=== PATIENT | male | born 1960 | race Two or more races ===

== ENCOUNTER 2018-07-13 15:20 | Inpatient (IN) | payer MEDICARE, OTHER ==
[~2018-07-13] VITALS: Ht 175.3 cm; Wt 73.9 kg
--- NOTE | 2018-07-13 15:25 | NUR ---
ED Nurse Note:' patient came in from [place], c/o cellulitis and toes infection, patient peeled off the toe nail, patient appears to have bilateral lower leg cellulitis. patient is alert and oriented, but confused, needs constant reorientation.
[2018-07-13 15:30] VITALS: BP 132/78
[2018-07-13] MEDS ORDERED: LORazepam 1mg tab ORAL ONE (16:00)
[2018-07-13 16:18] LABS: APPEARANCE,URINE CLEAR; BILIRUBIN, URINE NEGATIVE (NEGATIVE); COLOR,URINE PALE YELLOW; GLUCOSE, URINE (UA) NEGATIVE (NEGATIVE); KETONES,URINE NEGATIVE (NEGATIVE); LEUKOCYTE ESTERASE ,URINE NEGATIVE (NEGATIVE); NITRITE,URINE NEGATIVE (NEGATIVE); PH,URINE 7 (4.5-8.0); PROTEIN,URINE NEGATIVE (NEGATIVE); UROBILINOGEN,URINE NORMAL MG/DL (0.0-1.0)
--- NOTE | 2018-07-13 16:22 | Emergency Room Report ---
History of Present Illness General Chief Complaint: General Complaint Source: Medical Record Present Illness HPI 58-year-old male presents to the emergency department sent by assisted living for erythema, warmth to the bilateral feet as well as toenail avulsion that was self-inflicted last night. Patient has a history of it's affective disorder with some paranoia and OCD he also morfin COPD, upper lipidemia and GERD. Reports pain he is unable to provide a number rating. History and review of systems is limited due to patient being a poor historian he came accompanied with documentation of alternate democrat having conservatorship over him. Allergies: Coded Allergies: No Known Allergies (Unverified , 07/13/18) Patient History Past Medical History: see triage record, COPD, psych hx Past Surgical History: none Pertinent Family History: none Reviewed Nursing Documentation: PMH: Agreed; PSxH: Agreed Nursing Documentation-PMH Past Medical History: No History, Except For Hx COPD: Yes History Of Psychiatric Problem: Yes - OCD, Schizophrenia Review of Systems All Other Systems: negative except mentioned in HPI Physical Exam Vital Signs Date Time Temp Pulse Resp B/P (MAP) Pulse Ox O2 Delivery O2 Flow Rate FiO2 07/13/18 15:19 97.2 78 18 132/78 95 Room Air Sp02 EP Interpretation: reviewed, normal General Appearance: no apparent distress, alert, GCS 15, non-toxic Head: normocephalic, atraumatic Eyes: bilateral eye normal inspection, bilateral eye PERRL ENT: hearing grossly normal, normal voice Neck: full range of motion Respiratory: chest non-tender, lungs clear, normal breath sounds, speaking full sentences Cardiovascular #1: regular rate, rhythm, normal capillary refill Cardiovascular #2: 2+ dorsalis pedis (R), 2+ dorsalis pedis (L) Gastrointestinal: non tender, soft Musculoskeletal: back normal, gait/station normal, normal range of motion, swelling - bilat. feet., tender - TTP bilateral feet left>right, erythema, swelling and warmth. up to the ankles, NVI Neurologic: alert, oriented x3, responsive, motor strength/tone normal, sensory intact, speech normal, grossly normal Psychiatric: judgement/insight normal Skin: no rash, warm/dry, well hydrated, other - Erythema, swelling and warmth of the bilateral feet left>right, Medical Decision Making PA Attestation Dr. Addison is my supervising Physician whom patient management has been discussed with. Diagnostic Impression: Primary Impression: Cellulitis of both feet Additional Impression: Nail avulsion of toe Qualified Codes: S91.209A - Unspecified open wound of unspecified toe(s) with damage to nail, initial encounter ER Course 58-year-old male presents to the emergency department sent by assisted living for erythema, warmth to the bilateral feet as well as toenail avulsion that was self-inflicted last night. Patient has a history of it's affective disorder with some paranoia and OCD he also morfin COPD, upper lipidemia and GERD. Reports pain he is unable to provide a number rating. History and review of systems is limited due to patient being a poor historian he came accompanied with documentation of alternate democrat having conservatorship over him. Ddx considered but are not limited to cellulitis, DVT, toe nail avulsion, fracture, d/L, gout Vital signs: are WNL, pt. is afebrile H&PE are most consistent with Cellulitis ORDERS: - septic workup -CBC, CMP, lactic acid, blood cultures which are pending, troponin and CK. -UA:unremarkable ED INTERVENTIONS: -Vancomycin IV 1g. DISPOSITION: at this time pt. will be admitted to Dr. Mary for cellulitis of the bilateral feet. Dr. Mary agreed to admit the pt. and to continue pt. care management. Labs Test 07/13/18 15:49 07/13/18 16:15 Urine Color Pale yellow Urine Appearance Clear Urine pH 7 (4.5-8.0) Urine Specific [place] 1.010 (1.005-1.035) Urine Protein Negative (NEGATIVE) Urine Glucose (UA) Negative (NEGATIVE) Urine Ketones Negative (NEGATIVE) Urine Blood 1+ (NEGATIVE) Urine Nitrite Negative (NEGATIVE) Urine Bilirubin Negative (NEGATIVE) Urine Urobilinogen Normal MG/DL (0.0-1.0) Urine Leukocyte Esterase Negative (NEGATIVE) Urine RBC 2-4 /HPF (0 - 0) Urine WBC 0 /HPF (0 - 0) Urine Squamous Epithelial Cells None /LPF (NONE/OCC) Urine Bacteria None /HPF (NONE) White Blood Count 7.5 K/UL (4.8-10.8) Red Blood Count 4.86 M/UL (4.70-6.10) Hemoglobin 14.8 G/DL (14.2-18.0) Hematocrit 43.5 % (42.0-52.0) Mean Corpuscular Volume 90 FL (80-99) Mean Corpuscular Hemoglobin 30.5 PG (27.0-31.0) Mean Corpuscular Hemoglobin Concent 34.1 G/DL (32.0-36.0) Red Cell Distribution Width 12.3 % (11.6-14.8) Platelet Count 152 K/UL (150-450) Mean Platelet Volume 5.9 FL (6.5-10.1) Neutrophils (%) (Auto) 71.3 % (45.0-75.0) Lymphocytes (%) (Auto) 16.9 % (20.0-45.0) Monocytes (%) (Auto) 10.5 % (1.0-10.0) Eosinophils (%) (Auto) 0.0 % (0.0-3.0) Basophils (%) (Auto) 1.2 % (0.0-2.0) Sodium Level 134 MMOL/L (136-145) Potassium Level 4.4 MMOL/L (3.5-5.1) Chloride Level 99 MMOL/L (98-107) Carbon Dioxide Level 29 MMOL/L (21-32) Anion Gap 7 mmol/L (5-15) Blood Urea Nitrogen 15 mg/dL (7-18) Creatinine 0.7 MG/DL (0.55-1.30) Estimat Glomerular Filtration Rate > 60 mL/min (>60) Glucose Level 96 MG/DL (74-106) Lactic Acid Level 1.10 mmol/L (0.4-2.0) Calcium Level 8.8 MG/DL (8.5-10.1) Total Bilirubin 0.4 MG/DL (0.2-1.0) Aspartate Amino Transf (AST/SGOT) 35 U/L (15-37) Alanine Aminotransferase (ALT/SGPT) 32 U/L (12-78) Alkaline Phosphatase 71 U/L (46-116) Total Creatine Kinase 316 U/L (26-308) Troponin I 0.002 ng/mL (0.000-0.056) Total Protein 7.0 G/DL (6.4-8.2) Albumin 3.7 G/DL (3.4-5.0) Globulin 3.3 g/dL Albumin/Globulin Ratio 1.1 (1.0-2.7) Last Vital Signs Date Time Temp Pulse Resp B/P (MAP) Pulse Ox O2 Delivery O2 Flow Rate FiO2 07/13/18 15:30 78 18 Room Air 07/13/18 15:30 97.1 132/78 95 Disposition: ADMITTED INPATIENT Condition: Serious Amy Parrish Jul 13, 2018 16:22
[2018-07-13 16:28] LABS: BASOPHILS % (AUTO) 1.2 % (0.0-2.0); HEMATOCRIT 43.5 % (42.0-52.0); HEMOGLOBIN 14.8 G/DL (14.2-18.0); LYMPHOCYTES % (AUTO) 16.9 % (20.0-45.0); MEAN CORPUSCULAR VOLUME 90 FL (80-99); MONOCYTES % (AUTO) 10.5 % (1.0-10.0); NEUTROPHILS % (AUTO) 71.3 % (45.0-75.0); PLATELET COUNT 152 K/UL (150-450); RED BLOOD COUNT 4.86 M/UL (4.70-6.10); RED CELL DISTRIBUTION WIDTH 12.3 % (11.6-14.8); WHITE BLOOD COUNT 7.5 K/UL (4.8-10.8)
[2018-07-13] MEDS ORDERED: Vancomycin 1.5gm/D5W Premix 250 ML IVPB ONE (16:30)
[2018-07-13 16:44] LABS: ANION GAP 7 mmol/L (5-15); BLOOD UREA NITROGEN 15 mg/dL (7-18); CALCIUM 8.8 MG/DL (8.5-10.1); CARBON DIOXIDE 29 MMOL/L (21-32); CHLORIDE 99 MMOL/L (98-107); CREATININE 0.7 MG/DL (0.55-1.30); POTASSIUM 4.4 MMOL/L (3.5-5.1); SODIUM 134 MMOL/L (136-145)
[2018-07-13 16:58] LABS: ALANINE AMINOTRANSFERASE 32 U/L (12-78); ALBUMIN 3.7 G/DL (3.4-5.0); ALBUMIN/GLOBULIN RATIO 1.1 (1.0-2.7); ALKALINE PHOSPHATASE 71 U/L (46-116); ASPARTATE AMINO TRANSFERASE 35 U/L (15-37); BILIRUBIN,TOTAL 0.4 MG/DL (0.2-1.0); CREATINE KINASE 316 U/L (26-308)
[2018-07-13] MEDS ORDERED: PANTOPRAZOLE SO40 MG ORAL (18:25)
[2018-07-13] MEDS ORDERED: ATORVASTATIN CA20 MG ORAL (18:25)
[2018-07-13] MEDS ORDERED: DEPAKOTE ER500 MG ORAL (18:25)
[2018-07-13] MEDS ORDERED: TAMSULOSIN HCL0.4 MG ORAL (18:25)
[2018-07-13] MEDS ORDERED: ASPIRIN81 MG ORAL (18:25)
--- NOTE | 2018-07-13 19:05 | NUR ---
ED Nurse Note: vre/cre swab and mrsa swab done.
--- NOTE | 2018-07-13 19:06 | NUR ---
ED Nurse Note: vre/cre swab and mrsa swab done and sent down to the lab confirmed with slab lifting supervisor Addis that they received it
--- NOTE | 2018-07-13 19:15 | NUR ---
HAND-OFF: Report given to Brigid Bobo RN.
--- NOTE | 2018-07-13 19:20 | NUR ---
ED Nurse Note: called 4E, attempted to give report to Emi ruiz nurse, unable to because the nurse is receiving report about other pt at this time. Spoke with Rui, will endorse to Brigid alvarado
[2018-07-13 20:04] VITALS: BP 127/77
--- NOTE | 2018-07-13 20:21 | NUR ---
ER Nurse Note: Pt a&ox3, VSS, no signs of distress. Pt has a hx of schizophrnia and is not coharent when communicating; had to reorientate pt. Pt is asleep, calm, coopeartive. Called 4E for report; no answer. Will call again soon.
--- NOTE | 2018-07-13 20:40 | NUR ---
ER Nurse Note: Report given to ZAIDA Longoria. Pt stable, VSS, no signs of distress.
--- NOTE | 2018-07-13 20:45 | NUR ---
NURSE NOTES: Received report from ZAIDA Rainey ER, pt received awake, alert but somewhat frazzled, states he wants to keep his Wallet (DL and $20 inside) with him at bedside as well as clothing and he signed the belongings list refusing to have it sent to the safe. Pt bilateral feet with redness and part of lower leg, will take pictures. Call light within reach. COMMERCIAL CARPET INSTALLER is taking pt vital signs, will contact MD for orders.
[2018-07-13] MEDS ORDERED: ATROVENT HFA12.9 GM IH (22:05)
[2018-07-13] MEDS ORDERED: ABILIFY MAINTE400 MG IM (22:05)
[2018-07-13] MEDS ORDERED: VENTOLIN HFA18 GM INH (22:05)
[2018-07-13] MEDS ORDERED: CARBAMAZEPINE200 M4 ORAL (22:05)
[2018-07-13] MEDS ORDERED: Zolpidem 5mg tab ORAL PRN (22:30)
[2018-07-13] MEDS ORDERED: Albuterol 90mcg Inhaler 8gm INH PRN (22:30)
[2018-07-13] MEDS: cefTRIAXone 1 GM in D5W 55 ML IVPB SCH (23:34)
[2018-07-14] VITALS: BP 111/73
[2018-07-14] MEDS: Depakote ER 500mg tab ORAL SCH ×4 (00:25→20:58)
[2018-07-14] MEDS: Tamsulosin 0.4mg cap ORAL SCH ×2 (00:25→20:57)
[2018-07-14 04:00] VITALS: BP 119/65
[2018-07-14] MEDS: Vancomycin 750mg/NS 250ml IVPB SCH ×2 (05:08→17:51)
--- NOTE | 2018-07-14 07:36 | NUR ---
HAND-OFF: Report given to ZAIDA Jauregui.
--- NOTE | 2018-07-14 07:52 | NUR ---
NURSE NOTES: Received patient from ZAIDA Longoria. Patient is sitting in bed, awake, not in respiratory distress, in room air. Bed in the lowest position, call light within reach. Will continue to monitor patient.
[2018-07-14 08:00] VITALS: BP 115/65
[2018-07-14 08:14] LABS: BASOPHILS % (AUTO) 0.9 % (0.0-2.0); HEMATOCRIT 44.2 % (42.0-52.0); LYMPHOCYTES % (AUTO) 20.1 % (20.0-45.0); MEAN CORPUSCULAR VOLUME 88 FL (80-99); MONOCYTES % (AUTO) 16.5 % (1.0-10.0); NEUTROPHILS % (AUTO) 62.6 % (45.0-75.0); PLATELET COUNT 164 K/UL (150-450); RED BLOOD COUNT 5.02 M/UL (4.70-6.10); RED CELL DISTRIBUTION WIDTH 12.2 % (11.6-14.8); WHITE BLOOD COUNT 6.2 K/UL (4.8-10.8)
[2018-07-14 08:28] LABS: ALANINE AMINOTRANSFERASE 27 U/L (12-78); ALBUMIN 3.3 G/DL (3.4-5.0); ALKALINE PHOSPHATASE 60 U/L (46-116); ANION GAP 7 mmol/L (5-15); ASPARTATE AMINO TRANSFERASE 31 U/L (15-37); BILIRUBIN,TOTAL 0.4 MG/DL (0.2-1.0); BLOOD UREA NITROGEN 12 mg/dL (7-18); CALCIUM 8.8 MG/DL (8.5-10.1); CARBON DIOXIDE 27 MMOL/L (21-32); CHLORIDE 101 MMOL/L (98-107); CREATININE 0.8 MG/DL (0.55-1.30); PHOSPHORUS 3.5 MG/DL (2.5-4.9); SODIUM 135 MMOL/L (136-145)
[2018-07-14] MEDS: Aspirin Baby 81mg ORAL SCH (09:29)
[2018-07-14] MEDS: Enoxaparin 40mg Inj SUBQ SCH (09:30)
[2018-07-14 12:00] VITALS: BP 119/71
--- NOTE | 2018-07-14 12:00 | NUR ---
CASE MANAGEMENT: INITIAL REVIEW 58 YO M ALDO FROM [facility] CC: BILATERAL FEET AND TOE INFECTION PMHx: COPD. OCD. SCHIZOPHRENIA. SI:BILATERAL FOOT CELLULITIS. T 97.2 HR 78 RR 18 B/P 132/78 SATS 95% ON RA NA 134 TOTAL CK 316 IS: LORAZEPAM PO X1 VANCOMYCIN IV X1 PATIENT ADMITTED TO MED/SURG 07/13/2018 @ 1549 DCP: PATIENT TO BE DISCHARGED TO SNF ONCE MEDICALLY CLEARED. Addendum: 07/14/18 at 1514 by Lachelle Sharif INTERQUAL MET FOR ACUTE
--- NOTE | 2018-07-14 15:26 | History and Physical ---
History of Present Illness General Date patient seen: Jul 14, 2018 Reason for Hospitalization: General Complaint Present Illness HPI 58 y/o male with severe psych d/o sent for admission for increasing redness b/l legs. Pt started on iv abx for possible cellulitis. pt. says he feels better, c/w meds, denies sob, fevers, chills, cp ,n,v,. Allergies: Coded Allergies: No Known Allergies (Unverified , 07/13/18) Medication History Scheduled Aspirin* (Aspirin*), 81 MG ORAL DAILY, (Reported) Atorvastatin Calcium* (Atorvastatin Calcium*), 10 MG ORAL BEDTIME, (Reported) Carbamazepine (Carbamazepine), 200 MG ORAL TWICE A DAY, (Reported) Divalproex Sodium* (Depakote Er*), 500 MG ORAL EVERY 8 HOURS, (Reported) Pantoprazole* (Pantoprazole*), 40 MG ORAL DAILY, (Reported) Tamsulosin Hcl (Tamsulosin Hcl*), 0.4 MG ORAL BEDTIME, (Reported) Scheduled PRN Albuterol Sulfate (Ventolin Hfa), 2 PUFFS INH EVERY 6 HOURS PRN for Shortness of Breath, (Reported) Aripiprazole (Abilify Maintena), 400 MG IM [id number] PRN for psychosis, (Reported) Ipratropium [place] (Atrovent Hfa), 12.9 GM IH EVERY 6 HOURS PRN for Shortness of Breath, (Reported) Patient History Healthcare decision maker Aleyda Nayak Resuscitation status Full Code Advanced Directive on File Review of Systems Constitutional: Reports: malaise Eye: Denies: no symptoms, see HPI, eye pain, blurred vision, tearing, double vision, nose pain, nose congestion, acuity changes, discharge, other ENT: Denies: no symptoms, see HPI, ear pain, ear discharge, nose pain, nose congestion, throat pain, throat swelling, mouth pain, hearing loss, nasal discharge, other Respiratory: Denies: no symptoms, see HPI, cough, orthopnea, shortness of breath, stridor, wheezing, GUILLERMO, sputum, other Cardiovascular: Denies: no symptoms, see HPI, chest pain, edema, palpitations, syncope, PND, other Gastrointestinal: Denies: no symptoms, see HPI, abdominal pain, constipation, diarrhea, nausea, vomiting, melena, hematemesis, other Genitourinary: Denies: no symptoms, see HPI, discharge, dysuria, frequency, hematuria, pain, retention, incontinence, urgency, vag bleed/dc, other Musculoskeletal: Denies: no symptoms, see HPI, back pain, gout, joint pain, joint swelling, muscle pain, muscle stiffness, other Skin: Reports: rash Psychiatric: Denies: no symptoms, see HPI, prior hx, anxiety, depressed feelings, emotional problems, SI, HI, hallucinations, other Neurological: Reports: paresthesia Endocrine: Denies: excessive sweating, flushing, intolerance to temperature Hematologic/Lymphatic: Denies: blood clots Physical Exam General Appearance: WD/WN, no apparent distress, confused HEENT: atraumatic, PERRL Neck: non-tender Respiratory/Chest: lungs clear Breasts: no masses Cardiovascular/Chest: normal rate Abdomen: normal bowel sounds Genitourinary/Rectal: normal genital exam Skin Exam: warm/dry, rash Neurologic: spray maker II-XII grossly normal Last 24 Hour Vital Signs Date Time Temp Pulse Resp B/P (MAP) Pulse Ox O2 Delivery O2 Flow Rate FiO2 07/14/18 12:00 98.1 69 17 119/71 (87) 98 07/14/18 09:00 Room Air 07/14/18 08:00 98.5 19 115/65 (82) 66 07/14/18 04:00 97.7 18 119/65 (83) 96 07/14/18 00:00 97.4 19 111/73 (86) 98 07/13/18 22:36 Room Air 07/13/18 20:40 98.8 66 18 127/77 95 Room Air 07/13/18 20:04 98.8 66 18 127/77 95 Room Air 07/13/18 15:30 78 18 Room Air 07/13/18 15:30 97.1 78 18 132/78 95 Room Air Intake and Output 07/13/18 07/14/18 18:59 06:59 Intake Total 295 ml Balance 295 ml Intake Oral 240 ml IV Total 55 ml # Voids 2 Laboratory Tests Test 07/13/18 15:49 07/13/18 16:15 07/14/18 06:35 Urine Color Pale yellow Urine Appearance Clear Urine pH 7 (4.5-8.0) Urine Specific [place] 1.010 (1.005-1.035) Urine Protein Negative (NEGATIVE) Urine Glucose (UA) Negative (NEGATIVE) Urine Ketones Negative (NEGATIVE) Urine Blood 1+ (NEGATIVE) H Urine Nitrite Negative (NEGATIVE) Urine Bilirubin Negative (NEGATIVE) Urine Urobilinogen Normal MG/DL (0.0-1.0) Urine Leukocyte Esterase Negative (NEGATIVE) Urine RBC 2-4 /HPF (0 - 0) H Urine WBC 0 /HPF (0 - 0) Urine Squamous Epithelial Cells None /LPF (NONE/OCC) Urine Bacteria None /HPF (NONE) White Blood Count 7.5 K/UL (4.8-10.8) 6.2 K/UL (4.8-10.8) Red Blood Count 4.86 M/UL (4.70-6.10) 5.02 M/UL (4.70-6.10) Hemoglobin 14.8 G/DL (14.2-18.0) 15.0 G/DL (14.2-18.0) Hematocrit 43.5 % (42.0-52.0) 44.2 % (42.0-52.0) Mean Corpuscular Volume 90 FL (80-99) 88 FL (80-99) Mean Corpuscular Hemoglobin 30.5 PG (27.0-31.0) 30.0 PG (27.0-31.0) Mean Corpuscular Hemoglobin Concent 34.1 G/DL (32.0-36.0) 34.0 G/DL (32.0-36.0) Red Cell Distribution Width 12.3 % (11.6-14.8) 12.2 % (11.6-14.8) Platelet Count 152 K/UL (150-450) 164 K/UL (150-450) Mean Platelet Volume 5.9 FL (6.5-10.1) L 6.5 FL (6.5-10.1) Neutrophils (%) (Auto) 71.3 % (45.0-75.0) 62.6 % (45.0-75.0) Lymphocytes (%) (Auto) 16.9 % (20.0-45.0) L 20.1 % (20.0-45.0) Monocytes (%) (Auto) 10.5 % (1.0-10.0) H 16.5 % (1.0-10.0) H Eosinophils (%) (Auto) 0.0 % (0.0-3.0) 0.0 % (0.0-3.0) Basophils (%) (Auto) 1.2 % (0.0-2.0) 0.9 % (0.0-2.0) Sodium Level 134 MMOL/L (136-145) L 135 MMOL/L (136-145) L Potassium Level 4.4 MMOL/L (3.5-5.1) 4.0 MMOL/L (3.5-5.1) Chloride Level 99 MMOL/L (98-107) 101 MMOL/L (98-107) Carbon Dioxide Level 29 MMOL/L (21-32) 27 MMOL/L (21-32) Anion Gap 7 mmol/L (5-15) 7 mmol/L (5-15) Blood Urea Nitrogen 15 mg/dL (7-18) 12 mg/dL (7-18) Creatinine 0.7 MG/DL (0.55-1.30) 0.8 MG/DL (0.55-1.30) Estimat Glomerular Filtration Rate > 60 mL/min (>60) > 60 mL/min (>60) Glucose Level 96 MG/DL (74-106) 79 MG/DL (74-106) Lactic Acid Level 1.10 mmol/L (0.4-2.0) Calcium Level 8.8 MG/DL (8.5-10.1) 8.8 MG/DL (8.5-10.1) Total Bilirubin 0.4 MG/DL (0.2-1.0) 0.4 MG/DL (0.2-1.0) Aspartate Amino Transf (AST/SGOT) 35 U/L (15-37) 31 U/L (15-37) Alanine Aminotransferase (ALT/SGPT) 32 U/L (12-78) 27 U/L (12-78) Alkaline Phosphatase 71 U/L (46-116) 60 U/L (46-116) Total Creatine Kinase 316 U/L (26-308) H Troponin I 0.002 ng/mL (0.000-0.056) Total Protein 7.0 G/DL (6.4-8.2) 6.5 G/DL (6.4-8.2) Albumin 3.7 G/DL (3.4-5.0) 3.3 G/DL (3.4-5.0) L Globulin 3.3 g/dL 3.2 g/dL Albumin/Globulin Ratio 1.1 (1.0-2.7) 1.0 (1.0-2.7) Phosphorus Level 3.5 MG/DL (2.5-4.9) Magnesium Level 2.0 MG/DL (1.8-2.4) Height (Feet): 5 Height (Inches): 9.00 Weight (Pounds): 163 Medications Current Medications Medications (Trade) Dose Ordered Sig/Camacho Route PRN Reason Start Time Stop Time Status Last Admin Dose Admin Acetaminophen (Tylenol) 650 mg Q4H PRN ORAL For Pain 07/13/18 22:30 08/12/18 22:29 Albuterol Sulfate (Proventil MDI) 2 puff Q6H PRN INH Shortness of Breath 07/13/18 22:30 08/12/18 22:29 Aspirin (ASA) 81 mg DAILY ORAL 07/14/18 09:00 08/13/18 08:59 07/14/18 09:29 Atorvastatin Calcium (Lipitor) 10 mg BEDTIME ORAL 07/13/18 23:00 08/12/18 22:59 07/14/18 00:25 Ceftriaxone Sodium 1 gm/ Dextrose 55 ml @ 110 mls/hr Q24H IVPB 07/13/18 23:00 07/20/18 22:59 07/13/18 23:34 Divalproex Sodium (Depakote ER) 500 mg EVERY 8 HOURS ORAL 07/13/18 23:00 08/12/18 22:59 07/14/18 13:28 Enoxaparin Sodium (Lovenox) 40 mg DAILY SUBQ 07/14/18 09:00 08/13/18 08:59 07/14/18 09:30 Pantoprazole (Protonix) 40 mg DAILY ORAL 07/14/18 09:00 08/13/18 08:59 07/14/18 09:28 Tamsulosin HCl (Flomax) 0.4 mg BEDTIME ORAL 07/13/18 23:00 08/12/18 22:59 07/14/18 00:25 Vancomycin HCl (Vanco rx to dose) 1 ea DAILY PRN MISC Per rx protocol 07/13/18 22:30 08/12/18 22:29 Vancomycin/Sodium Chloride 250 ml @ 166.667 mls/hr Q12H IVPB 07/14/18 05:00 07/19/18 04:59 07/14/18 05:08 Zolpidem Tartrate (Ambien) 5 mg HSPRN PRN ORAL Insomnia 07/13/18 22:30 07/20/18 22:29 Assessment/Plan Problem List: (1) Nail avulsion of toe Assessment & Plan: -d/w podiatry ICD Codes: S91.209A - Unspecified open wound of unspecified toe(s) with damage to nail, initial encounter SNOMED: 460646874 Qualifiers: Qualified Codes: S91.209A - Unspecified open wound of unspecified toe(s) with damage to nail, initial encounter (2) Cellulitis of both feet Assessment & Plan: -cont iv abx ICD Codes: L03.115 - Cellulitis of right lower limb; L03.116 - Cellulitis of left lower limb SNOMED: 732106323 Status: Lam House M.D. Jul 14, 2018 15:26
[2018-07-14 16:00] VITALS: BP 117/64
--- NOTE | 2018-07-14 19:26 | NUR ---
HAND-OFF: Report given to Maricarmen CERDA.
--- NOTE | 2018-07-14 19:34 | NUR ---
NURSE NOTES: Received patient awake,alert,verbal,ambulatory,resting in bed,comfortable.
[2018-07-14] MEDS ORDERED: NS 275ml ONE (19:57)
[2018-07-14] MEDS ORDERED: Tubing IV Secondary IV ONE (19:57)
[2018-07-14 20:00] VITALS: BP 103/64
[2018-07-14] MEDS: cefTRIAXone 1 GM in D5W 55 ML IVPB SCH (22:35)
[2018-07-15] VITALS: BP 108/69
[2018-07-15] MEDS: Vancomycin 750mg/NS 250ml IVPB SCH ×2 (03:47→17:00)
[2018-07-15] MEDS: Depakote ER 500mg tab ORAL SCH ×3 (05:29→21:40)
--- NOTE | 2018-07-15 07:00 | NUR ---
HAND-OFF: Report given to Randa Bolaños RN/ZAIDA Maza.
--- NOTE | 2018-07-15 07:28 | NUR ---
NURSE NOTES: Received report from ZAIDA Mckeon. patient alert, verbally responsive. no distress noted. no c/o pain at this time. bed in low position. call light within reach. will continue to monitor
[2018-07-15 08:00] VITALS: BP 121/76
[2018-07-15] MEDS: Aspirin Baby 81mg ORAL SCH (08:32)
[2018-07-15] MEDS: Enoxaparin 40mg Inj SUBQ SCH ×2 (08:36→09:00)
--- NOTE | 2018-07-15 10:00 | Nephrology Progress Note ---
Assessment/Plan Problem List: (1) Nail avulsion of toe Assessment & Plan: -d/w podiatry, wound care. ICD Codes: S91.209A - Unspecified open wound of unspecified toe(s) with damage to nail, initial encounter SNOMED: 321370029 Qualifiers: Qualified Codes: S91.209A - Unspecified open wound of unspecified toe(s) with damage to nail, initial encounter (2) Cellulitis of both feet Assessment & Plan: -cont iv abx improved ICD Codes: L03.115 - Cellulitis of right lower limb; L03.116 - Cellulitis of left lower limb SNOMED: 462097387 Status: stable Subjective Date patient seen: Jul 15, 2018 Constitutional: Reports: no symptoms HEENT: Denies: no symptoms, eye pain, blurred vision, tearing, double vision, ear pain, ear discharge, nose pain, nose congestion, throat pain, throat swelling, mouth pain, mouth swelling, other Cardiovascular: Denies: no symptoms, chest pain, edema, irregular heart rate, lightheadedness, palpitations, syncope, other Respiratory: Denies: no symptoms, cough, orthopnea, shortness of breath, SOB with excertion, SOB at rest, sputum, stridor, wheezing, other Gastrointestinal/Abdominal: Denies: no symptoms, abdomen distended, abdominal pain, black stools, tarry stools, blood in stool, constipated, diarrhea, difficulty swallowing, nausea, poor appetite, poor fluid intake, rectal bleeding , vomiting, other Neurologic/Psychiatric: Reports: anxiety, emotional problems, weakness Endocrine: Reports: no symptoms Allergies: Coded Allergies: No Known Allergies (Unverified , 07/13/18) Objective Last 24 Hour Vital Signs Date Time Temp Pulse Resp B/P (MAP) Pulse Ox O2 Delivery O2 Flow Rate FiO2 07/15/18 08:00 97.9 67 18 121/76 (91) 98 07/15/18 00:00 98.6 75 20 108/69 (82) 95 07/14/18 20:03 Room Air 07/14/18 20:00 98.8 69 19 103/64 (77) 97 07/14/18 19:45 73 18 Room Air 21 07/14/18 16:00 98.4 72 18 117/64 (81) 97 07/14/18 13:34 74 18 Room Air 07/14/18 12:00 98.1 69 17 119/71 (87) 98 Intake and Output 07/14/18 07/15/18 19:00 07:00 Intake Total 866.667 ml 1108.333 ml Balance 866.667 ml 1108.333 ml Intake Oral 720 ml IV Total 166.667 ml 388.333 ml Other 700 ml # Voids 3 Height (Feet): 5 Height (Inches): 9.00 Weight (Pounds): 163 General Appearance: no apparent distress, confused EENT: PERRL/EOMI, normal ENT inspection Neck: non-tender Cardiovascular: normal rate Respiratory/Chest: lungs clear Abdomen: non tender Genitourinary/Rectal: normal genital exam Extremities: normal range of motion Lam Ribera M.D. Jul 15, 2018 10:00
[2018-07-15] MEDS: LORazepam 1mg tab ORAL PRN ×2 (10:26→21:42)
--- NOTE | 2018-07-15 10:26 | NUR ---
NURSE NOTES: Patient was agitated, wandering in the room and hallway.Notified Dr. Ribera and received order of Ativan 1mg Q6hrs PRN. administered medication as ordered. will continue to monitor patient behavor and any side effect of medication
--- NOTE | 2018-07-15 11:28 | NUR ---
NURSE NOTES: Patient sitting in the room and watching TV.
[2018-07-15 12:00] VITALS: BP 127/81
[2018-07-15 16:00] VITALS: BP 127/71
--- NOTE | 2018-07-15 17:00 | NUR ---
NURSE NOTES: Patient refused vanco trough test and refused vancomycin at 1700. Explained benefits and tried to administer medications but patient still refused.
--- NOTE | 2018-07-15 19:06 | NUR ---
HAND-OFF: Report given to ZAIDA Moyer.
--- NOTE | 2018-07-15 19:35 | NUR ---
NURSE NOTES: Received patient sitting in bed with periods of confusion. Talkative. Patient states "I'm hungry I want 2 sandwiches and milk". Will give patient snacks. No signs of pain or facial grimacing noted. IV intact. Bed in lowest position and locked. Will continue to monitor.
[2018-07-15 20:00] VITALS: BP 132/77
[2018-07-15] MEDS: Tamsulosin 0.4mg cap ORAL SCH (21:40)
[2018-07-15] MEDS: carBAMazepine 200mg tab ORAL SCH (21:40)
[2018-07-15] MEDS: cefTRIAXone 1 GM in D5W 55 ML IVPB SCH (23:21)
[2018-07-16] VITALS: BP 113/76
--- NOTE | 2018-07-16 00:15 | Consultation ---
DATE OF CONSULTATION: 07/14/2018 NOTE: POOR AUDIO QUALITY CONSULTING PHYSICIAN: Chris Mcgovern D.P.M REFERRING PHYSICIAN: Lam Ribera M.D. REASON FOR CONSULTATION: Contusion to nails, bilateral feet. HISTORY OF PRESENT ILLNESS: This is a 58-year-old male who was admitted to [facility] for . The patient had toes caused bleeding and contusion. The patient is confused and cannot give me proper history. PAST MEDICAL HISTORY: Per Dr. Ribera. History of feet and nail abrasions. PODIATRY EXAMINATION: VASCULAR: Dorsalis pedis and posterior tibial artery are palpable throughout . The capillary refill is less than 3 seconds. NEUROLOGIC: Cannot be assessed due to the patient's status . MUSCULOSKELETAL: The patient is bedbound, not responsive. DERMATOLOGICAL: The patient has dystrophic, mycotic, thick nails x10. Short right hallux and to the left third toe contusion, dry hematoma, status post self-avulsion or abrasion of the toe. No drainage, discharge, or purulent matter is noted at the site. Slight edema and erythema is noted periwound. There is hyperpigmentation to the toes inflammatory. No open wounds. ASSESSMENT: The patient is status post abrasion/contusion to bilateral toenails with possible periwound cellulitis. PLAN: Cleanse toes with normal saline and apply triple antibiotic. The patient will be followed as necessary. Chris Mcgovern D.P.M DR: ROSE JOB#: [id number] CC:
[2018-07-16 04:00] VITALS: BP 132/78
--- NOTE | 2018-07-16 04:30 | NUR ---
NURSE NOTES: Patient awake asking for food and given snacks. Patient still getting restless and removed gown. Try to re-orient and told patient to go back to room. Patient comply.
[2018-07-16] MEDS: Vancomycin 750mg/NS 250ml IVPB SCH (04:43)
[2018-07-16] MEDS: Depakote ER 500mg tab ORAL SCH (05:27)
--- NOTE | 2018-07-16 07:30 | NUR ---
NURSE NOTES: Willy fields spoke to [facility] pharmacist regarding patient vancomycin. Patient supposed to have vanco trough on 07/15 at 1600 but patient refused blood draw. Pharmacist said to continue dose of vanco at 0500 am.
--- NOTE | 2018-07-16 07:35 | NUR ---
HAND-OFF: Report given to Marianna Gonzalez RN.
--- NOTE | 2018-07-16 07:38 | NUR ---
NURSE NOTES: Patient received in stable condition, eating breakfast by the bedside. Alert and oriented x2-3. Able to verbalize needs. Breathing unlabored on room air. Ambulatory with steady gait. Denies pain at this time. IV site on R forearm patent and intact. Call light within reach, will continue to monitor.
[2018-07-16 08:00] VITALS: BP 118/64
[2018-07-16] MEDS: Aspirin Baby 81mg ORAL SCH (09:11)
[2018-07-16] MEDS: carBAMazepine 200mg tab ORAL SCH (09:12)
[2018-07-16] MEDS: LORazepam 1mg tab ORAL PRN (09:12)
[2018-07-16] MEDS: Enoxaparin 40mg Inj SUBQ SCH (09:17)
--- NOTE | 2018-07-16 11:16 | NUR ---
LINEN SUPERVISOR NOTES [facility] OK TO SEND PT BACK TO FACILITY. WILL PROVIDE TRANSPORTATION. [facility] NAYL[facility] [id number] [phone]
[2018-07-16] MEDS ORDERED: NEOSPORIN OINTM30 GM TP (11:19)
[2018-07-16 12:00] VITALS: BP 119/71
[2018-07-16] MEDS ORDERED: Neosporin Oint 15gm TOPIC SCH (13:00)
--- NOTE | 2018-07-16 13:14 | NUR ---
NURSE NOTES: Patient discharged to [facility] in [facility], accompanied by ambulance personnel. Belongings reviewed and confirmed with the patient at bedside. Discharge instructions provided. IV safely removed, site covered with gauze and tape. Patient ambulatory, denies pain or respiratory distress, observed to be in stable condition.
--- NOTE | 2018-07-16 15:39 | Discharge Summary ---
Discharge Summary Hospital Course Date of Admission Jul 13, 2018 at 17:19 Date of Discharge Jul 16, 2018 at 13:37 Admitting Diagnosis BILATERAL FOOT CELLULITIS CONSUELO Moses is a 58 year old male who was admitted on Jul 13, 2018 at 17:19 for Bilateral Foot Cellulitis Hospital Course (1) Nail avulsion of toe Assessment & Plan: -d/w podiatry, wound care. ICD Codes: S91.209A - Unspecified open wound of unspecified toe(s) with damage to nail, initial encounter SNOMED: [id number] Qualifiers: Qualified Codes: S91.209A - Unspecified open wound of unspecified toe(s) with damage to nail, initial encounter (2) Cellulitis of both feet Discharge Condition Upon Discharge: improving, stable Discharge Disposition Patient was discharged to [facility] (01) Lam Ribera M.D. Jul 16, 2018 15:39
== END 2018-07-16 13:37 | DRG 603 ==
LOC: EDBD 15:20 → EMR 17:14 → 4E 17:19 → EDBEDREQ 18:50
DX: L03.116 Cellulitis of left lower limb (principal); L03.115 Cellulitis of right lower limb; S91.209A Unspecified open wound of unspecified toe(s) with damage to nail, initial encounter; X58.XXXA Exposure to other specified factors, initial encounter; F25.9 Schizoaffective disorder, unspecified; F42.9 Obsessive-compulsive disorder, unspecified; J44.9 Chronic obstructive pulmonary disease, unspecified; K21.9 Gastro-esophageal reflux disease without esophagitis; Z79.82 Long term (current) use of aspirin
CPT/HCPCS: 36415; 80053; 81003; 82550; 83605; 83735; 84100; 84484; 85025; 87040; 87081; 94664; 96365; 96366; 99285